=== PATIENT | female | born 1990 | race Native Hawaiian/Other Pacific Islander ===

== ENCOUNTER 2020-07-25 09:58 | Outpatient (CLI) | payer OTHER ==
[2020-07-25 10:39] LABS: PLATELET COUNT 211 K/uL (152-353)
== END 2020-07-25 23:31 | disposition home or self-care (01) ==
LOC: LABW 09:58
PROVIDERS: Nurse Practitioner Family
DX: R53.83 Other fatigue (principal); N95.8 Other specified menopausal and perimenopausal disorders; R23.2 Flushing
CPT/HCPCS: 36415; 82306; 82607; 82670; 82746; 83001; 83002; 84146; 84402; 84403; 84436; 84439; 84443; 84479; 85027

== ENCOUNTER 2022-11-20 08:32 | Outpatient (CLI) | payer OTHER | END 2022-11-20 19:29 | disposition home or self-care (01) | LOC: US 08:32 | PROVIDERS: ATTEND Internal Medicine | DX: R79.89 Other specified abnormal findings of blood chemistry (principal) ==